=== PATIENT | male | born 1970 | race Hispanic/Latino ===

== ENCOUNTER 2019-12-18 20:13 | Emergency (ER) | payer BC ==
[~2019-12-18] VITALS: Ht 170.2 cm; Wt 81.6 kg
[2019-12-18] MEDS ORDERED: ONDANSETRON HCL INJ 2MG/ML 2ML 2 MG/ML VIAL IV STA (20:44)
[2019-12-18] MEDS ORDERED: KETOROLAC TROMETHAMINE 30 MG/ML VIAL IV STA (20:44)
[2019-12-18] MEDS ORDERED: SODIUM CHLORIDE 0.9% 1000ML 1,000 ML IV ONE (20:45)
[2019-12-18 21:13] LABS: ALANINE AMINOTRANSFERASE 39 IU/L (0-55); ALBUMIN 4.4 g/dL (3.5-5.0); ALBUMIN/GLOBULIN RATIO 1.7 (0.8-2.0); ALKALINE PHOSPHATASE 70 IU/L (40-150); ANION GAP 14.3 mmol/L (8-16); BLOOD UREA NITROGEN 18 mg/dL (7-26); BUN/CREATININE RATIO 15 (6-25); CALCIUM 9.3 mg/dL (8.4-10.2); CARBON DIOXIDE 24 mmol/L (22-29); CHLORIDE 104 mmol/L (98-107); CREATININE, SERUM 1.19 mg/dL (0.72-1.25); EST GLOMERULAR FILTRATION RATE > 60 ML/MIN (60-); GLUCOSE 108 mg/dL (74-118); POTASSIUM 4.3 mmol/L (3.5-5.1); SODIUM 138 mmol/L (136-145)
[2019-12-18 21:24] LABS: CLARITY,URINE SL CLOUDY (CLEAR); COLOR,URINE YELLOW (YELLOW); LEUKOCYTE ESTERASE ,URINE NEGATIVE (NEGATIVE); NITRITE,URINE NEGATIVE (NEGATIVE)
[2019-12-18 21:25] LABS: BILIRUBIN,URINE NEGATIVE (NEGATIVE); EPITHELIAL CELLS,URINE RARE /LPF; KETONES,URINE TRACE (NEGATIVE); PROTEIN,URINE DIPSTICK NEGATIVE (NEGATIVE); URINE UROBILINOGEN 0.2 mg/dL (0.2 - 1); WBC,URINE (MAN) 0-5 /HPF (0-5)
--- NOTE | 2019-12-18 21:34 | Diagnostic Imaging Report ---
CT Abdomen and Pelvis without contrast INDICATION: ^LT FLANK PAIN ^[id number] ^8 TECHNIQUE: Thin collimation axial images obtained from the diaphragm to the level of the pubic symphysis without nonionic intravenous contrast. Dose reduction techniques used: Automated exposure control, adjustment of the mAs and/or kVp according to patient size, standardized low-dose protocol, and/or iterative reconstruction technique. RADIATION DOSE: Total DLP: 388.65 mGy*cm Estimated effective dose: (DLP x 0.015 x size factor) mSv CTDIvol has been reviewed. It is below the limits set by the Radiation Protocol Committee (RPC). COMPARISON: None. ABDOMEN FINDINGS: Lung Bases: Calcified subcentimeter calcified granuloma in the left lower lobe. The heart is top normal in size. The visualized portion of the mediastinum is normal. Liver: Normal in attenuation without mass. Gallbladder: Present and appears normal. No ductal dilatation. Pancreas: Normal attenuation without mass. Spleen: Normal size without mass. Adrenal Glands: No evidence for mass. Kidneys: Right: No renal calculus. No cortical mass or hydronephrosis Left: Edematous with perinephric inflammation. Multiple intrarenal calculi measuring up to 3 mm with the majority located in the lower pole. There is mild collecting system distention. Lymph Nodes: No lymphadenopathy. Aorta: Normal in diameter. PELVIS FINDINGS: Bowel: Stomach: Distended with water and otherwise normal. Small Bowel: Normal in caliber with normal wall thickness. Large Bowel: Normal in caliber with normal wall thickness. Appendix: Normal. Bladder: Underdistended but otherwise normal. Ureters: Left ureter is distended throughout its course. There is a calculus in the ureteral orifice measuring 3 mm. Prostate gland/seminal vesicles: Unremarkable. Bones: Mild degenerative changes of the spine. Soft tissues: Unremarkable. IMPRESSION: Mildly obstructing calculus in the left ureter at the UVJ. Multiple left intrarenal calculi. Signed by: Dr. Angela Renteria MD on 12/18/2019 9:30 PM
[2019-12-18 21:44] LABS: BASOPHILS % 0.3 % (0.0-1.0); EOSINOPHILS % 0.2 % (0.0-6.0); HEMATOCRIT 44.3 % (38.2-49.6); LYMPHOCYTES # (AUTO) 1.3 (1.0-3.2); LYMPHOCYTES % 12.7 % (18.0-39.1); MEAN CORPUSCULAR HGB CONC 33.9 g/dL (31-35); MEAN CORPUSCULAR VOLUME 88.6 fL (81-99); MONOCYTES # (AUTO) 0.6 (0.2-0.8); MONOCYTES % 6.2 % (4.4-11.3); NEUTROPHILS # (AUTO) 8.1 (2.1-6.9); NEUTROPHILS % 80.1 % (38.7-80.0); PLATELET COUNT 189 x10e3/uL (140-360); RED CELL DISTRIBUTION WIDTH 13.3 % (11.7-14.4)
[2019-12-18] MEDS ORDERED: TAMSULOSIN HCL 0.4 MG CAP PO SCH (21:45)
[2019-12-18] MEDS ORDERED: CEFTRIAXONE SOD 1 GM/NS 50 ML 50 ML IV ONE (21:45)
[2019-12-18] MEDS ORDERED: FLOMAX0.4 MG PO (22:12)
[2019-12-18] MEDS ORDERED: ULTRAM50 MG PO (22:12)
[2019-12-18] MEDS ORDERED: HYDROCODONE/APAP 10MG-325MG TAB ONE (22:23)
[2019-12-18] MEDS ORDERED: HYDROCODONE/APAP 10MG-325MG TAB PO ONE (22:30)
[2019-12-18 22:32] VITALS: BP 110/89
== END 2019-12-18 22:52 | disposition home or self-care (01) ==
LOC: ER 20:13
DX: R30.0 Dysuria (principal); R10.9 Unspecified abdominal pain; M54.5 Low back pain; R31.9 Hematuria, unspecified; N20.2 Calculus of kidney with calculus of ureter
CPT/HCPCS: 36415; 74176; 80053; 81001; 83690; 85025; 99284; J0696; J1885; J2405; J7030